=== PATIENT | male | born 1955 | race Two or more races ===

== ENCOUNTER 2020-05-21 05:30 | Day surgery (SDC) | payer OTHER | END 2020-05-21 18:20 | disposition home or self-care (01) | LOC: CIR.AMB 05:30 | PROVIDERS: ATTEND Urology | DX: C65.2 Malignant neoplasm of left renal pelvis (principal); Z20.828 Contact with and (suspected) exposure to other viral communicable diseases ==

== ENCOUNTER 2020-07-16 06:30 | Day surgery (SDC) | payer OTHER | END 2020-07-16 17:00 | disposition home or self-care (01) | LOC: CIR.AMB 06:30 | PROVIDERS: ATTEND Urology | DX: C65.2 Malignant neoplasm of left renal pelvis (principal); Z20.822 Contact with and (suspected) exposure to COVID-19 ==

== ENCOUNTER 2021-03-21 05:50 | Day surgery (SDC) | payer OTHER | END 2021-03-21 10:35 | disposition home or self-care (01) | LOC: AMB-ENDOS 05:50 | PROVIDERS: ATTEND Surgery | DX: D12.4 Benign neoplasm of descending colon (principal); Z20.822 Contact with and (suspected) exposure to COVID-19 ==

== ENCOUNTER 2021-04-06 11:22 | Inpatient (IN) | payer OTHER ==
[2021-04-08] MEDS ORDERED: FAMOTIDINE20 MG (08:16)
[2021-04-12] MEDS ORDERED: PRILOSEC OTC20 MG PO (12:48)
[2021-04-12] MEDS ORDERED: ULTRACET PO (12:48)
== END 2021-04-12 15:20 | disposition home or self-care (01) | DRG 657 ==
LOC: SURG 04-08 05:50 → O/R 04-08 05:50 → SURH 04-08 09:30 → SURG 04-08 20:18
PROVIDERS: Urology; ADMIT Surgery; ATTEND Surgery
PROC: 0DTG4ZZ Resection of Left Large Intestine, Percutaneous Endoscopic Approach (ICD-10-PCS; principal; 2021-04-08 09:30)
PROC: 0TT74ZZ Resection of Left Ureter, Percutaneous Endoscopic Approach (ICD-10-PCS; 2021-04-08 09:30)
DX: C66.2 Malignant neoplasm of left ureter (principal); D62 Acute posthemorrhagic anemia; D12.4 Benign neoplasm of descending colon; D12.3 Benign neoplasm of transverse colon; I10 Essential (primary) hypertension

== ENCOUNTER 2022-09-22 05:50 | Day surgery (SDC) | payer OTHER ==
[~2022-09-22] VITALS: Ht 170.2 cm; Wt 69.4 kg
[~2022-09-22 05:50] MED LIST: FAMOTIDINE20 MG; PRILOSEC OTC20 MG PO; ULTRACET PO
== END 2022-09-22 16:50 | disposition home or self-care (01) ==
LOC: CIR.AMB 05:50
PROVIDERS: ATTEND Urology
DX: C67.9 Malignant neoplasm of bladder, unspecified (principal); N30.20 Other chronic cystitis without hematuria; Z91.011 Allergy to milk products; Z91.041 Radiographic dye allergy status; Z20.822 Contact with and (suspected) exposure to COVID-19